=== PATIENT | female | born 1995 | race African-American/Black ===

== ENCOUNTER 2019-05-02 01:44 | Emergency (ER) | payer SELFPAY ==
[~2019-05-02] VITALS: Ht 165.1 cm; Wt 55.0 kg
[2019-05-02] MEDS ORDERED: ONDANSETRON HCL 4MG TABLET PO ONE (03:15)
[2019-05-02] MEDS ORDERED: IBUPROFEN 600MG TABLET PO ONE (03:15)
[2019-05-02] MEDS ORDERED: DIPHENHYDRAMINE 25MG CAPSULE PO ONE (03:15)
[2019-05-02 03:17] VITALS: BP 108/57
[2019-05-02 03:46] LABS: CLARITY URINE CLEAR (CLEAR); COLOR URINE YELLOW (YELLOW); KETONES URINE NEGATIVE (NEGATIVE); LEUKOCYTE ESTERASE URINE 2+ (NEGATIVE); NITRITE URINE NEGATIVE (NEGATIVE); OCCULT BLOOD URINE NEGATIVE (NEGATIVE); PH URINE >=9.0 (4.5-8.0); PROTEIN URINE 1+ (NEGATIVE); SPECIFIC GRAVITY URINE 1.021 (1.005-1.030)
== END 2019-05-02 03:44 | disposition left against medical advice (07) ==
LOC: ER 02:13
DX: R51 Headache (principal); R52 Pain, unspecified; N39.0 Urinary tract infection, site not specified; E11.9 Type 2 diabetes mellitus without complications; F17.210 Nicotine dependence, cigarettes, uncomplicated; Z94.5 Skin transplant status
CPT/HCPCS: 81003; 81025; 82962; 87086; 99284; Q0162; Q0163

== ENCOUNTER 2019-07-21 20:19 | Emergency (ER) | payer SELFPAY ==
[~2019-07-21] VITALS: Ht 162.6 cm; Wt 53.0 kg
[2019-07-21 21:04] LABS: CLARITY URINE TURBID (CLEAR); COLOR URINE YELLOW (YELLOW); KETONES URINE TRACE (NEGATIVE); LEUKOCYTE ESTERASE URINE 3+ (NEGATIVE); NITRITE URINE NEGATIVE (NEGATIVE); OCCULT BLOOD URINE NEGATIVE (NEGATIVE); PROTEIN URINE 1+ (NEGATIVE); SPECIFIC GRAVITY URINE 1.024 (1.005-1.030)
[2019-07-22] MEDS ORDERED: FAMOTIDINE 20MG/2ML VIAL IV STA (02:39)
[2019-07-22] MEDS ORDERED: VISCOUS LIDOCAINE 2% 15 ML UDC PO STA (02:39)
[2019-07-22] MEDS ORDERED: KETOROLAC 30MG/ML VIAL IV STA (02:39)
[2019-07-22] MEDS ORDERED: SODIUM CHLORIDE 0.9% 1,000 ML IV ONE (02:39)
[2019-07-22] MEDS ORDERED: MAGNESIUM/ALUMINUM HYDROXIDE/SIMETHICONE 30ML UDC PO STA (02:39)
[2019-07-22] MEDS ORDERED: CEFTRIAXONE 1 G PREMIX 50 ML IV ONE (02:45)
[2019-07-22 03:02] LABS: INR 1.1; PROTHROMBIN TIME 11.3 sec (9.6-11.0)
[2019-07-22 03:03] LABS: CHLORIDE 102 mEq/L (98-107)
[2019-07-22 03:05] LABS: HEMATOCRIT. 26.5 % (36.0-48.0); HEMOGLOBIN. 7.5 g/dL (12.0-16.0); MEAN CORPUSCULAR HEMOGLOBIN 16.2 pg (28.0-32.0); MEAN PLATELET VOLUME 8.7 fl (7.4-10.4); PLATELET 291 x1000/uL (130-400); RED BLOOD CELL COUNT 4.64 mill/uL (4.2-5.4); RED CELL DISTRIBUTION WIDTH 20.6 % (11.6-14.6)
[2019-07-22 04:40] VITALS: BP 120/75
[2019-07-22 07:01] LABS: PLATELET ESTIMATE NORMAL
== END 2019-07-22 05:40 | disposition home or self-care (01) ==
LOC: ER 20:19
DX: N39.0 Urinary tract infection, site not specified (principal); D50.9 Iron deficiency anemia, unspecified; F12.10 Cannabis abuse, uncomplicated; R11.0 Nausea
CPT/HCPCS: 36415; 71045; 76705; 80053; 81003; 81025; 83690; 85025; 85610; 87086; 96365; 96375; 99284; J0696; J1885; J3490; J7030

== ENCOUNTER 2019-07-23 14:46 | Emergency (ER) | payer SELFPAY ==
[~2019-07-23] VITALS: Ht 162.6 cm; Wt 52.0 kg
[2019-07-23 16:06] VITALS: BP 122/72
[2019-07-23] MEDS ORDERED: METRONIDAZOLE 500MG TABLET PO ONE (18:45)
== END 2019-07-23 19:07 | disposition home or self-care (01) ==
LOC: ER 14:46
DX: A59.01 Trichomonal vulvovaginitis (principal); F12.10 Cannabis abuse, uncomplicated; Z87.440 Personal history of urinary (tract) infections
CPT/HCPCS: 99283

== ENCOUNTER 2019-12-11 08:23 | Emergency (ER) | payer SELFPAY ==
[~2019-12-11] VITALS: Ht 160 cm; Wt 55.0 kg
[2019-12-11] MEDS ORDERED: CEPHALEXIN 250MG CAPSULE PO ONE (09:15)
[2019-12-11] MEDS ORDERED: SULFAMETHOXAZOLE/TRIMETHOPRIM 800/160MG TABLET PO ONE (09:15)
[2019-12-11] MEDS ORDERED: BACITRACIN ZINC OINT UDPKT TOP ONE (09:15)
[2019-12-11] MEDS ORDERED: IBUPROFEN 600MG TABLET PO ONE (09:15)
[2019-12-11] MEDS ORDERED: LIDOCAINE 1%/EPI 1:100,000 10 ML VIAL IJ ONE (09:15)
[2019-12-11] MEDS ORDERED: LIDOCAINE HCL/EPINEPHRINE 1%-EPI 1:100,000 20 ML VIAL INFIL NR (10:00)
[2019-12-11 10:51] VITALS: BP 116/59
== END 2019-12-11 10:53 | disposition home or self-care (01) ==
LOC: ER 08:23
DX: L02.413 Cutaneous abscess of right upper limb (principal); L03.113 Cellulitis of right upper limb; F12.10 Cannabis abuse, uncomplicated; F17.200 Nicotine dependence, unspecified, uncomplicated; E11.9 Type 2 diabetes mellitus without complications; Z87.440 Personal history of urinary (tract) infections; Z98.890 Other specified postprocedural states
CPT/HCPCS: 10060; 82962; 99284; J3490